=== PATIENT | male | born 1980 | race Caucasian/White ===

== ENCOUNTER 2024-01-16 20:53 | Emergency (ER) | payer MEDICAID ==
[~2024-01-16] VITALS: Ht 177.8 cm; Wt 74.8 kg
[2024-01-16 21:06] VITALS: BP_SYST 130; PULSE 78; RESP 16; TEMP 99.2; O2SAT 98
[2024-01-16 21:35] LABS: BILIRUBIN,URINE NEGATIVE (NEGATIVE); COLOR,URINE YELLOW (YELLOW); GLUCOSE,URINE NEGATIVE (NEGATIVE); KETONES,URINE NEGATIVE (NEGATIVE); LEUKOCYTE ESTERASE ,URINE 2+ (NEGATIVE); NITRITE, URINE POSITIVE (NEGATIVE); PROTEIN URINE NEGATIVE (NEGATIVE)
[2024-01-16 21:37] LABS: BLOOD, URINE TRACE (NEGATIVE)
[2024-01-16 21:38] LABS: CLARITY/URINE SLIGHTLY HAZY (CLEAR)
[2024-01-16 22:05] LABS: BACTERIA,URINE MODERATE /HPF (None Seen)
[2024-01-16] MEDS: KETOROLAC TROMETHAMINE 60 MG/2 ML VIAL IM ONE (22:27)
[2024-01-16] MEDS ORDERED: MELO-89 PO (23:25)
[2024-01-16] MEDS ORDERED: CIPR500T5 PO (23:25)
[2024-01-16 23:26] LABS: BASOPHILS # (AUTO) 0.1 K/uL (0.0-0.2); BASOPHILS % (AUTO) 1.4 % (0.0-2.0); EOSINOPHILS % (AUTO) 0.3 % (0.0-4.0); HEMATOCRIT 36.5 % (36-54); HEMOGLOBIN 12.7 g/dL (14.0-18.0); LYMPHOCYTES # (AUTO) 1.1 K/uL (1.0-5.5); LYMPHOCYTES % (AUTO) 10.8 % (20.5-51.5); MEAN CORPUSCULAR HEMOGLOBIN 30 pg (27-31); MEAN CORPUSCULAR HGB CONC 35 % (32-36); MEAN CORPUSCULAR VOLUME 85 fL (79.0-98.0); MONOCYTES % (AUTO) 10.1 % (1.7-9.3); NEUTROPHILS # (AUTO) 7.6 K/uL (1.8-7.7); NEUTROPHILS % (AUTO) 77.4 % (40.0-70.0); PLATELET COUNT (AUTO) 271 K/uL (130-430); RED BLOOD CELL COUNT(AUTO) 4.29 MIL/uL (4.2-6.2); RED CELL DISTRIBUTION WIDTH 13.4 % (9.0-15.0); WHITE BLOOD COUNT (AUTO) 9.8 K/uL (4.8-10.8)
[2024-01-16 23:42] LABS: CALCIUM 8.6 mg/dL (8.4-11.0); CREATININE 1.34 mg/dL (0.55-1.30); POTASSIUM 3.7 mmol/L (3.5-5.1)
[2024-01-16 23:43] LABS: ALBUMIN 2.8 g/dL (3.4-4.8); BILIRUBIN,DIRECT 0.1 mg/dL (0.0-0.3); TOTAL BILIRUBIN 0.4 mg/dL (0.0-1.0); TOTAL PROTEIN, SERUM 7.6 g/dL (6.4-8.3)
[2024-01-16 23:55] VITALS: BP_SYST 130; PULSE 78; RESP 16; TEMP 99.2; O2SAT 98
== END 2024-01-16 23:55 | disposition home or self-care (01) ==
LOC: SED 20:53
DX: N39.0 Urinary tract infection, site not specified (principal); R10.9 Unspecified abdominal pain; M54.50 Low back pain, unspecified; Z79.899 Other long term (current) drug therapy
CPT/HCPCS: 99284; 71046; 80076; 80048; 81001; 83690; 85025; 87086; 87186; 36415; 96372; 81000; 81015; J1885